=== PATIENT | female | born 1965 | race Caucasian/White ===

== ENCOUNTER 2017-11-15 08:17 | Emergency (ER) | payer OTHER ==
[2017-11-15 08:29] VITALS: BP 138/88
--- NOTE | 2017-11-15 08:31 | UC ---
Throat Pain/Nasal Fred HPI - HPI Summary HPI Summary: 52 yo female persents with hoarseness for the last 3 days. She tells me that her voice hoarseness began abruptly on wednesday and has persisted since that time. Has a mild cough. 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 Has been drinking tea with honey and many other OTC remedies with no relief. Denies fever , chills, SOB, chest pain, trouble swallowing/eating. - History of Current Complaint Chief Complaint: UCGeneralIllness Stated Complaint: SORE THROAT Time Seen by Provider: 11/15/17 08:30 Hx Obtained From: Patient Hx Last Menstrual Period: 05/29/2013 Onset/Duration: Sudden Onset Severity: Mild Pain Intensity: 4 Pain Scale Used: 0-10 Numeric Cough: Nonproductive - Allergies/Home Medications Allergies/Adverse Reactions: Allergies Allergy/AdvReac Type Severity Reaction Status Date / Time codeine Allergy See Comment Verified 11/15/17 08:23 PMH/Surg Hx/FS Hx/Imm Hx - Additional Past Medical History Additional PMH: None Previously Healthy: Yes - Surgical History Surgical History: Yes Surgery Procedure, Year, and Place: 1968 SEVERAL SURGERIES FOR [facility]. 1998 [facility]; left ankle bone chip Mar 2012. 2 C SECTIONS 1999/ 2004. Shoulder Surgery- [facility] - Family History Known Family History: Positive: None - Social History Occupation: Employed Full-time Lives: With Family Alcohol Use: None Substance Use Type: None Smoking Status (MU): Never Smoked Tobacco - Immunization History Most Recent Tetanus Shot: Unknown Review of Systems Constitutional: Negative Skin: Negative Eyes: Negative ENT: Other - Hoarseness Respiratory: Negative Cardiovascular: Negative Gastrointestinal: Negative Neurovascular: Negative Neurological: Negative Psychological: Negative All Other Systems Reviewed And Are Negative: Yes Physical Exam - Summary Physical Exam Summary: GENERAL: NAD. WDWN. No pain distress. SKIN: No rashes, sores, lesions, or open wounds. HEENT: Head: AT/NC Eyes: EOM intact. Conjunctiva clear without inflammation or discharge. Ears: Hearing grossly normal. TMs intact, no bulging, erythema, or edema. Nose: Nasal mucosa pink and moist. NTTP maxillary and frontal sinus. Throat: Hoarse voice. Posterior oropharynx without exudates, erythema, or tonsillar enlargement. Uvula midline. NECK: Supple. Nontender. No lymphadenopathy. CHEST: CTAB. No r/r/w. No accessory muscle use. Breathing comfortably and in no distress. CV: RRR. Without m/r/g. Pulses intact. Brisk cap refill. NEURO: Alert. CN II-XII grossly intact. PSYCH: Age appropriate behavior. Triage Information Reviewed: Yes Vital Signs: Initial Vital Signs Temp 98.4 F 11/15/17 08:24 Pulse 105 11/15/17 08:24 Resp 20 11/15/17 08:24 BP 138/88 11/15/17 08:24 Pulse Ox 99 11/15/17 08:24 Throat Pain/Nasal Course/Dx - Course Course Of Treatment: POC strep negative. Suspect viral laryngitis. Prednisone has been shown to speed the recovery and decrease layngeal inflammation - will try this for her. - Differential Dx/Diagnosis Provider Diagnoses: Viral laryngitis Discharge - Sign-Out/Discharge Documenting (check all that apply): Discharge/Admit/Transfer - Discharge Plan Condition: Stable Disposition: HOME Prescriptions: predniSONE TAB* [Deltasone TAB*] 60 mg PO DAILY #15 tab Patient Education Materials: Laryngitis (ED) Referrals: Darren Collazo MD [Primary Care Provider] - Additional Instructions: If you develop a fever, shortness of breath, chest pain, new or worsening symptoms - please call your PCP or go to the ED. Your blood pressure was high at todays visit. Please see your primary provider within 4 weeks for recheck and re-evaluation. - Billing Disposition and Condition Condition: STABLE Disposition: HOME
== END 2017-11-15 09:00 | disposition home or self-care (01) ==
LOC: UCEAST 08:17
DX: J04.0 Acute laryngitis (principal); B97.89 Other viral agents as the cause of diseases classified elsewhere; Z88.5 Allergy status to narcotic agent
CPT/HCPCS: 87651; 99212; G0463

== ENCOUNTER 2019-01-09 16:18 | Emergency (ER) | payer OTHER ==
[2019-01-09 16:29] VITALS: BP 119/76
--- NOTE | 2019-01-09 16:40 | UC ---
Eye Complaint HPI - HPI Summary HPI Summary: 53 y/o female presents to the urgent care c/o a itchy rash beloe her RT eye for the past 2 weeks. Pt states rash was smaller and she has been applying Neosporyn oint and Benadryl topical w/o any improvement. she has noticed for the past 2 days rash has gotten a little bigger w/ more itchiness and mild swelling. Pt has been scratching it at times. Pt denies eye pain, photophobia , visual changes, AMBRIZ, dizziness, SOB, chest pain, abdominal pain, N/v/d. Pt denies wearing new make up or applying new facial lotions. Pt wears contact lenses, but has removed them. - History of Current Complaint Chief Complaint: UCEye Stated Complaint: EYE COMPLAINT Time Seen by Provider: 01/09/19 16:37 Hx Obtained From: Patient Hx Last Menstrual Period: 05/29/2013 ?: No - menopausal Onset/Duration: Gradual Onset, Lasting Weeks - 2 weeks, Still Present, Worse Since - 2 days Timing: Constant Severity Initially: Mild Severity Currently: Mild Pain Intensity: 2 Pain Scale Used: 0-10 Numeric Location of Injury: Eye Lid (lower) - RT lower eyelid w/ an itchy red rash Character: Dull Aggravating Factor(s): Other - itchiness Alleviating Factor(s): Nothing Associated Signs And Symptoms: Positive: Swelling - mild swelling of RT eyelid rash. Negative: Photophobia, Drainage (Clear), Drainage (Purulent), Vision Impairment Bilateral, Fever - Risk Factors Penetrating Injury Risk Factor: Negative Globe Rupture Risk Factors: Negative Acute Glaucoma Risk Factors: Negative Optic Artery Occlusion Risk Factors: Negative - Allergies/Home Medications Allergies/Adverse Reactions: Allergies Allergy/AdvReac Type Severity Reaction Status Date / Time codeine Allergy See Comment Verified 01/09/19 16:29 PMH/Surg Hx/FS Hx/Imm Hx Previously Healthy: Yes - Pt denies PMHX - Surgical History Surgical History: Yes Surgery Procedure, Year, and Place: 1969 SEVERAL SURGERIES FOR [facility] [place] [place]. 1998 [facility]; left ankle bone chip Mar 2012. 2 C SECTIONS 1999/ 2004. Shoulder Surgery- 03/2016 [facility] - Family History Known Family History: Positive: None - Pt denies FMHX - Social History Occupation: Employed Full-time Lives: With Family Alcohol Use: None Substance Use Type: None Smoking Status (MU): Never Smoked Tobacco - Immunization History Most Recent Tetanus Shot: Unknown Review of Systems All Other Systems Reviewed And Are Negative: Yes Constitutional: Positive: Negative Skin: Positive: Rash - RT lower eyelid w/ itchy red rash and mild swelling Eyes: Positive: Negative. Negative: Blurred Vision, Diplopia, Drainage, Eye Redness, Photophobia ENT: Positive: Negative Respiratory: Positive: Negative Cardiovascular: Positive: Negative Gastrointestinal: Positive: Negative Genitourinary: Positive: Negative Motor: Positive: Negative Neurovascular: Positive: Negative Musculoskeletal: Positive: Negative Neurological: Positive: Negative Psychological: Positive: Negative Is Patient Immunocompromised?: No Physical Exam - Summary Physical Exam Summary: Vital Signs Reviewed: Yes General: Well appearing, well nourished female in no apparent pain distress Eyes: Positive: b/l Conjunctiva clear- Visual acuity: WNL,Visual grewal: full to confrontation. RT lower eyelid w/ samll erythematous maculopapular eruption w / signs of excoriation, no drainage, midl swelling , No tenderness on palpation. PERRLA, EOMI intact w/out limitation or complaint of pain. eyelashes clear. No drainage observed. No ciliary flush. No chemosis, No photophobia. Normal fundoscopic exam; no proptosis, exophthalmos, nystagmus. ENT: Positive: Normal ENT inspection, Hearing grossly normal, Pharynx normal, Nasal congestion, Nasal drainage - clear, TMs normal - B/L external ear canal clear , TM's WNL. Negative: Tonsillar swelling, Tonsillar exudate Neck: Positive: Supple, Nontender, No Lymphadenopathy Respiratory: Positive: Chest nontender, Lungs clear, Normal breath sounds, No respiratory distress Cardiovascular: Positive: RRR, No Murmur, Pulses Normal, Brisk Capillary Refill Abdomen Description: Positive: Nontender, No Organomegaly, Soft. Negative: CVA Tenderness (R), CVA Tenderness (L) Bowel Sounds: Positive: Present Musculoskeletal: Positive: Strength Intact, ROM Intact, No Edema Neurological Exam: Normal Psychological Exam: Normal Skin Exam: Normal Triage Information Reviewed: Yes Vital Signs: Initial Vital Signs Temp 98.4 F 01/09/19 16:24 Pulse 76 01/09/19 16:24 Resp 16 01/09/19 16:24 BP 119/76 07/15/19 16:24 Pulse Ox 98 01/09/19 16:24 Eye Complaint Course/Dx - Course Course Of Treatment: 53 y/o female presents to the urgent care c/o a itchy rash beloe her RT eye for the past 2 weeks. Pt states rash was smaller and she has been applying Neosporyn oint and Benadryl topical w/o any improvement. she has noticed for the past 2 days rash has gotten a little bigger w/ more itchiness and mild swelling. Pt has been scratching it at times. Pt denies eye pain, photophobia , visual changes, AMBRIZ, dizziness, SOB, chest pain, abdominal pain, N/v/d. Pt denies wearing new make up or applying new facial lotions. Pt wears contact lenses, but has removed them. Hx obtained. Pt w/ possible RT lower eyelid w/ contact dermatitis, now getting mildly infected w/ mild periorbital cellulitis. Pt Rx triamcinolone topical cream and Keflex PO to alleviate rash. Pt advised if not improvement of rash or her eye gets swollen and pain develops despite taking antibiotics to f/u w/ Power Plant Assistant DR Ott or if rash is not improving to f/u w/ Deramtologist Dr Frances for further evaluation and treatment. D/c instructions explained. Pt understood and agreed with D/C instructions. - Differential Dx/Diagnosis Differential Diagnosis/HQI/PQRI: Conjunctivitis, Periorbital Cellulitis, Orbital Cellulitis, Uveitis Provider Diagnosis: Contact dermatitis of right eyelid, Periorbital cellulitis of right eye Discharge - Sign-Out/Discharge Documenting (check all that apply): Patient Departure - D/C home All imaging exams completed and their final reports reviewed: No Studies - Discharge Plan Condition: Stable Disposition: HOME Prescriptions: Cephalexin CAP* [Keflex CAP*] 500 mg PO TID #21 cap Triamcinolone 0.1% OINT(NF) [Kenolog 0.1% OINT(NF)] 1 applic .SEE ORDER BID #1 oint Patient Education Materials: Contact Dermatitis (ED), Periorbital Cellulitis in Adults (ED) Referrals: Darren Collazo MD [Primary Care Provider] - 3 Days Sonja Frances [Medical Doctor] - 1 Week Additional Instructions: 1-Please take full course of Antibiotic. Take yogurts w/ probitotics or Culturelle to protect your GI system 2- Please apply Traimcinolone topical cream over rash as directed. Avoid sun exposure, wear glasses and avoid cream getting in your eye 3- If redness and swelling doubles please f/u w/ food dehydrator operator DR Ott or End Trimmer DR Frances. for further management. - Billing Disposition and Condition Condition: STABLE Disposition: Home
== END 2019-01-09 17:09 | disposition home or self-care (01) ==
LOC: UCEAST 16:18
DX: H01.113 Allergic dermatitis of right eye, unspecified eyelid (principal); L03.213 Periorbital cellulitis; Z88.5 Allergy status to narcotic agent
CPT/HCPCS: 99212; G0463